=== PATIENT | female | born 1950 | race Two or more races ===

== ENCOUNTER → 2018-08-08 | Outpatient (CLI) | payer OTHER | END | disposition home or self-care (01) | LOC: NUCLEAR 08:19 | DX: I87.2 Venous insufficiency (chronic) (peripheral) (principal); N36.9 Urethral disorder, unspecified; E66.8 Other obesity; J98.11 Atelectasis; I51.7 Cardiomegaly; R09.81 Nasal congestion; J45.31 Mild persistent asthma with (acute) exacerbation; I73.9 Peripheral vascular disease, unspecified; J44.9 Chronic obstructive pulmonary disease, unspecified; J42 Unspecified chronic bronchitis; I11.9 Hypertensive heart disease without heart failure ==

== ENCOUNTER 2023-09-16 11:03 | Emergency (ER) | payer OTHER ==
[~2023-09-16] VITALS: Ht 165.1 cm; Wt 79.8 kg
[2023-09-16] MEDS ORDERED: LEVOTHYROXINE25 MC1 (11:49)
[2023-09-16] MEDS ORDERED: XARELTO20 MG (11:49)
[2023-09-16] MEDS ORDERED: MONTELUKAST SOD10 MG (11:50)
[2023-09-16] MEDS ORDERED: LISINOPRIL2.5 MG (11:50)
[2023-09-16] MEDS ORDERED: METAXALONE800 MG PO (17:24)
[2023-09-16] MEDS ORDERED: MEDROLPACK PO (17:24)
== END 2023-09-16 17:30 | disposition home or self-care (01) ==
LOC: ER 11:03
DX: M54.50 Low back pain, unspecified (principal); Z91.041 Radiographic dye allergy status; I10 Essential (primary) hypertension; E05.80 Other thyrotoxicosis without thyrotoxic crisis or storm; Z86.72 Personal history of thrombophlebitis; J45.909 Unspecified asthma, uncomplicated; Z98.890 Other specified postprocedural states; M51.37 Other intervertebral disc degeneration, lumbosacral region